=== PATIENT | male | born 2000 | race Caucasian/White ===

== ENCOUNTER 2021-06-21 09:18 | Inpatient (IN) | payer MEDICAID ==
[~2021-06-21] VITALS: Ht 185.4 cm; Wt 78.2 kg
[2021-06-22 08:40] VITALS: BP 129/66
[2021-06-22] MEDS ORDERED: mag hydrox/Alum hydrox/simeth 30ml oral suspension PO PRN (08:40)
[2021-06-22] MEDS ORDERED: acetaminophen 325mg tablet PO PRN ×2 (08:40)
[2021-06-22] MEDS ORDERED: magnesium hydroxide 30ml (MOM) UD suspension PO PRN (08:40)
[2021-06-22] MEDS ORDERED: loperamide 2mg capsule PO PRN (08:40)
--- NOTE | 2021-06-22 08:40 | NUR ---
Admit Note: Pt. was admitted to the unit from [facility] in [place], [place] in a wheelchair accompanied by Tech. A safety check was completed and his belongings were inventoried. Pt. is on a 5150 for GD. 5150 states: You stated, "I feel I hear myself crying...walking my bones to hear my brother sing." You presented as dulled after Zyprexa 20mg 1.5 hours prior, loose associations, disorganization, no POC.
[2021-06-22] MEDS ORDERED: PALI234D IM (16:46)
[2021-06-22] MEDS: LORazepam 1 MG tablet PO PRN (16:52)
--- NOTE | 2021-06-22 17:37 | NUR ---
Nursing Progress Note: Legal hold: 5150 Client on involuntary status for GD Report received from nurse with use of SBAR: Anna Marie Richard RN Why are they here: Pt. is on a 5150 for GD. 5150 states: You stated, "I feel I hear myself crying...walking my bones to hear my brother sing." You presented as dulled after Zyprexa 20mg 1.5 hours prior, loose associations, disorganization, no POC. Assessment What has happened this shift: Pt. was cooperative with mental health assessment, however is easily distracted and a poor historian. He is A&O X1, to name only and when questioned why he is here states, "I was hit by radioactive waves." Pt. also reports a belief that he is an brendon and he is getting his wings, pointing to areas on his upper back, stating "They are growing in." When questioned regarding S/I, pt. currently denies this and scores as a low suicide risk on the [employer] Suicide Risk Assessment, this was endorsed to HECTOR Palmer. He denies any H/I. Pt. does admit to V/RODRIGUEZ of "The radioactive symbol," and A/RODRIGUEZ of "Microphones." He reported a headache, and PRN Tylenol was administered with effectiveness. Pt. presents as restless and hyper sabianist AEB pacing reading out of the Bible throughout much of the shift. At approximately 1645, pt. became increasingly anxious and slightly agitated. He yelled out, "I'm nobody's B....!" This was endorsed to HECTOR Palmer and obtained an order for PRN Ativan, will continue to monitor closely. S/I, H/I: Denies A/VH: Pt. reports V/RODRIGUEZ of "The radioactive symbol," and A/RODRIGUEZ of "Microphones." Sleep: Pt. napped intermittently during the shift ADL's: Pt. requires direction and encouragement Group attendance: N/A Were meds taken: None ordered Any med S/E: None Mental Status Exam Appearance: Hair and clothing are disheveled Eye contact: Good, intense at times Behavior: Cooperative, anxious, and restless Speech: Hyperverbal Mood: Pleasant, however restless Affect: Labile Thought process: Tangental with disorganization Thought Content: A/V/RODRIGUEZ and delusions Cognition: A&O X1 Insight: Poor Judgment: Poor Interventions PRN's used: Tylenol and Ativan Therapeutic interventions: Introduced self and attempted to establish rapport, maintained a safe and supportive environment, ensured contract for safety, provided clear and simple instructions, attempted to orient to reality, monitored behavior and provided redirection as needed, and maintained Q 15 min. safety checks. Restraints/seclusion/emergency medication: N/A Justification of Continued Inpatient Treatment: Pt. requires a safe and supportive environment, medication adjustments, and interruption of current crisis.
--- NOTE | 2021-06-22 17:58 | NUR ---
Pt. had an Invega Sustenna injection 234mg on 06/17/21 per chart records. This hand sign writer attempted to contact [facility] to see when next injection is due, however unable to reach and left message. This was endorsed to HECTOR Palmer who may start pt. on oral Invega.
[2021-06-22] MEDS ORDERED: traZODone 50mg tablet PO PRN (19:05)
[2021-06-22 20:00] VITALS: BP 136/71
[2021-06-22] MEDS: PALIPERIDONE 3 MG TAB.ER.24 PO SCH (20:21)
[2021-06-22 21:42] VITALS: BP 136/71
--- NOTE | 2021-06-23 05:32 | NUR ---
Nursing Progress Note: Legal hold: 5150 Client on involuntary status for GD Report received from nurse with use of SBAR: JOSELITO Stevenson Why are they here: Pt. is on a 5150 for GD. 5150 states: You stated, "I feel I hear myself crying...walking my bones to hear my brother sing." You presented as dulled after Zyprexa 20mg 1.5 hours prior, loose associations, disorganization, no POC. Assessment What has happened this shift: Received pt in hallway reading Bible aloud while pacing slowly. Pt cooperative with pm assessment and pt continues to rattle out delusional thoughts with some sikhism preoccupation. Pt fell asleep before snacks and was easily awoken for snack and hs medication which he took without hesitation. Pt returned to sleep by 2029 and remains asleep without signs of distress. S/I, H/I: Denies A/VH: Pt. reports A/V hallucinations Sleep: Pt. napped intermittently during the shift ADL's: Pt. requires direction and encouragement Group attendance: N/A Were meds taken: None ordered Any med S/E: None Mental Status Exam Appearance: pt appeared clean and attentive to ADLs dressed in street clothes Eye contact: Good, intense at times Behavior: Cooperative, anxious, and restless Speech: Hyperverbal Mood: Pleasant, however restless Affect: Labile Thought process: Tangental with disorganization Thought Content: A/V/RODRIGUEZ and delusions Cognition: A&O X1 Insight: Poor Judgment: Poor Interventions PRN's used: n/a Therapeutic interventions: Introduced self and attempted to establish rapport, maintained a safe and supportive environment, ensured contract for safety, provided clear and simple instructions, attempted to orient to reality, monitored behavior and provided redirection as needed, and maintained Q 15 min. safety checks. Restraints/seclusion/emergency medication: N/A Justification of Continued Inpatient Treatment: Pt. requires a safe and supportive environment, medication adjustments, and interruption of current crisis.
[2021-06-23 07:05] LABS: HEMOGLOBIN A1C 5.6 % (4.5-6.2)
--- NOTE | 2021-06-23 07:29 | NUR ---
Malnutrition consult: Pt admitted w/ A/V/RODRIGUEZ per EMR. Pt unsure of wt loss per MST, no wt hx in EMR though current wt appropriate. No reports of muscle or fat wasting, no edema noted and pt w/ normal muscle strength. Pt has consumed 75-100% of fist 2 meals and has had snacks. At this time pt does not meet minimum criteria for malnutrition. Addendum: 06/23/21 at [address] R[address] Amended: Links added.
[2021-06-23 08:00] VITALS: BP 123/63
[2021-06-23 08:09] LABS: CHOL/HDL RATIO 2.9 (0.00-4.99); CHOLESTEROL 204 MG/DL (0-200); HDL CHOLESTEROL 70 MG/DL (35-60); LDL CHOLESTEROL 122 MG/DL (50-100); TRIGLYCERIDES 37 MG/DL (20-135)
--- NOTE | 2021-06-23 15:09 | NUR ---
Assessment Presenting Issues: Pt admitted from [facility] on 5150 due to GD concerns. 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 Clinician, w/pt present called his mother, left w/nayely's # for mother to contact pt. Plan: Clinician will continue to engage pt & family in assessment & dcp activities as appropriate. Shanelle Galindo LCSW Addendum: 06/23/21 at 1514 by Shanelle Galindo SS Amended: Links added.
--- NOTE | 2021-06-23 17:05 | NUR ---
Nursing Progress Note: Pedro Legal hold: 5150 Client on involuntary status for GD Report received from RN with use of SBAR Why are they here: Pt. is on a 5150 for GD. 5150 states: You stated, "I feel I hear myself crying...walking my bones to hear my brother sing." You presented as dulled after Zyprexa 20mg 1.5 hours prior, loose associations, disorganization, no POC. Assessment What has happened this shift: Patient was sleeping at start of shift. I first seen patient awake and talking with nursing students in the community room and decided to approach him after their conversation was done. I was finally able to approach patient when he returned to his room, where he denied thoughts of SI/HI. He does report hallucinating radioactive symbol signs everywhere he goes. Patient verbalizes being an brendon whose wings are getting cut off. He believes his wings get cut off every time he hears a door close. Patient continues to request for me to read the bible with him, saying it makes him happy. Patient states he will reach out to his sister once he is discharged and have her get him back to [place], where he will work. S/I, H/I: Denies A/VH: Pt. reports auditory hallucinations Sleep: patient napped once during shift for about 2 hours ADL's: Pt. 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 Were meds taken: None ordered Any med S/E: None Mental Status Exam Appearance: pt appeared clean and attentive to ADLs dressed in street clothes Eye contact: Good, intense at times Behavior: Cooperative, anxious, and restless Speech: Hyperverbal Mood: Pleasant, however restless Affect: Labile Thought process: Tangental with disorganization Thought Content: visual hallucinations and delusions Cognition: A&O X Insight: Poor Judgment: Poor Interventions PRN's used: n/a Therapeutic interventions: Introduced self and attempted to establish rapport, maintained a safe and supportive environment, ensured contract for safety, provided clear and simple instructions, attempted to orient to reality, monitored behavior and provided redirection as needed, and maintained Q 15 min. safety checks. Restraints/seclusion/emergency medication: N/A Justification of Continued Inpatient Treatment: Pt. requires a safe and supportive environment, medication adjustments, and interruption of current crisis.
[2021-06-23 20:00] VITALS: BP 135/89
[2021-06-23] MEDS: PALIPERIDONE 3 MG TAB.ER.24 PO SCH (20:16)
--- NOTE | 2021-06-23 23:15 | NUR ---
Nursing Progress Note: Pedro Legal hold: 5150 Client on involuntary status for GD Report received from RN with use of SBAR Why are they here: Pt. is on a 5150 for GD. 5150 states: You stated, "I feel I hear myself crying...walking my bones to hear my brother sing." You presented as dulled after Zyprexa 20mg 1.5 hours prior, loose associations, disorganization, no POC. Assessment What has happened this shift: Patient in the rec room watching TV with peers. Pt presents as restless and paranoid. Pt denies SI/+AH states his voices say first thing first; saddle the horses up. Pt is observed in the hallway responding to internal stimuli (laughing and talking to himself.) Pt several times tried to come into the observation room but was easily re-directed. Pt participated in snacks and took all HS medications. Pt was observed lying on the floor in the rec room and was directed to his room to go to bed. Pt stated to PCT can you make sure my roommate doesnt kill me. S/I, H/I: Denies A/VH: Pt. reports auditory hallucinations Sleep: ADL's: Pt. requires direction and encouragement Group attendance: Were meds taken: yes Any med S/E: None Mental Status Exam Appearance: pt appeared disheveled dressed in street clothes with a heavy coat. Eye contact: Good, intense at times Behavior: Cooperative, anxious, paranoid Speech: Hyperverbal Mood: Pleasant, however restless Affect: Labile Thought process: Tangental with disorganization Thought Content: visual hallucinations and delusions Cognition: A&O X1 Insight: Poor Judgment: Poor Interventions PRN's used: n/a Therapeutic interventions: Introduced self and attempted to establish rapport, maintained a safe and supportive environment, ensured contract for safety, provided clear and simple instructions, attempted to orient to reality, monitored behavior and provided redirection as needed, and maintained Q 15 min. safety checks. Restraints/seclusion/emergency medication: N/A Justification of Continued Inpatient Treatment: Pt. requires a safe and supportive environment, medication adjustments, and interruption of current crisis.
[2021-06-24 08:00] VITALS: BP 113/83
[2021-06-24] MEDS: LORazepam 1 MG tablet PO PRN (08:11)
--- NOTE | 2021-06-24 09:53 | NUR ---
Pt attended group today. We talked about Self Nurturing about how to curate spaces of nurture/self-care for themselves. We then did Vision board visualizing safe/nurture places and words. Pt. was very engaging in the group. He has a lot to say that was appropriate and positive toward the topic we were discussing. He engaged well in the Vision page jumping right into the activity. He was very friendly with the nursing students talking with them throughout the group. At one point he asked them (three nursing students) if he could pray for them and then he did. The students were encouraging of him and they appeared to be having good interactions with him. At the end of the group he brought his page to this Alumni Coordinator and explained some of its meaning. When asked if he would like to share it with the group, he was willing. He shared about his page appropriately, at the end of his explanation he began to share how some content that was veering into delusional. He explained to the group that he is an brendon and started to explain where his wings were and how he works them. His demeanor was pleasantly manic and compliant. His thought content seemed to contain hyper synagogue themes. His thought process was a bit disorganized but he is able to follow along to topic and respond appropriately. Sruthi Barrera LCSW
--- NOTE | 2021-06-24 10:02 | NUR ---
Pt. attended group today. At the beginning of group we talked about Core Beliefs and they each identified one negative. We worked toward finding evidence to contradict this belief. In the second half of the group we did an Art Expressions where they what was inside of their hearts. They were to visualize in colors and shapes and then color their heart in. Then they completed a Sentence Completion about what their heart thinks and feels. Pt. engaged in the group well. He shared his thoughts appropriately with the group and seemed to enjoy his heart expression. His demeanor was calm, compliant and pleasant to work with. His mood was less manic in presentation today from yesterday. His thought content and thought process were WNL. Sruthi Barrera LCSW
--- NOTE | 2021-06-24 17:54 | NUR ---
Nursing Progress Note: Pedro Legal hold: 5150 Client on involuntary status for GD Report received from nurse with use of SBAR: JOSELITO Ho Why are they here: Pt. is on a 5150 for GD. 5150 states: You stated, "I feel I hear myself crying...walking my bones to hear my brother sing." You presented as dulled after Zyprexa 20mg 1.5 hours prior, loose associations, disorganization, no POC. Assessment What has happened this shift: Patient was observed walking around the unit at change of shift. He joined in the group room for breakfast with peers. Patient was receptive to 1:1 assessment. He endorsed to this display card writer that he is doing okay and ready to go home. Patient noted isolating to his room after breakfast, observed lying in bed. He received PRN Ativan at 0811 for c/o anxiety and not feeling very friendly. Patient denies SI/HI, AH or VH. Does not appear to be responding to internal stimuli. 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 He is cooperative, pleasant, reserved, and self-isolative throughout the shift. Patient participated in group therapy today, noted interacting and engaging appropriately with staff and peers. He retreated back to his room shortly after. Patient observed walking around the unit and talking to a peer for a brief period of time later in the shift. He joined in the group room for all meal and snack times today. S/I, H/I: Denies A/VH: Denies Sleep: Pt slept 7.75 hours last night per NOC shift. Napped intermittently on this shift. ADL's: Pt. requires direction and encouragement Group attendance: Yes Were meds taken: None ordered Any med S/E: None observed or reported Mental Status Exam Appearance: Hair and clothing are disheveled, wearing green unit scrubs Eye contact: Good Behavior: Cooperative, anxious, and restless Speech: Clear, WNL Mood: Pleasant, however restless Affect: Labile Thought process: Linear Thought Content: Meeting needs. Ready to go home. Cognition: A&O X1 to person Insight: Poor Judgment: Poor Interventions PRN's used: Ativan Therapeutic interventions: Introduced self and attempted to establish rapport, maintained a safe and supportive environment, ensured contract for safety, provided clear and simple instructions, attempted to orient to reality, monitored behavior and provided redirection as needed, and maintained Q 15 min. safety checks. Restraints/seclusion/emergency medication: N/A Justification of Continued Inpatient Treatment: Pt. requires a safe and supportive environment, medication adjustments, and interruption of current crisis.
[2021-06-24 19:48] VITALS: BP 143/73
[2021-06-24] MEDS: PALIPERIDONE 3 MG TAB.ER.24 PO SCH (20:19)
--- NOTE | 2021-06-25 01:32 | NUR ---
Nursing Progress Note: Pedro Legal hold: 5150 Client on involuntary status for GD Report received from nurse with use of SBAR: JOSELITO Kim Why are they here: Pt. is on a 5150 for GD. 5150 states: You stated, "I feel I hear myself crying...walking my bones to hear my brother sing." You presented as dulled after Zyprexa 20mg 1.5 hours prior, loose associations, disorganization, no POC. Assessment What has happened this shift: Patient was in the rec room questioning whether or not he could take a greyhound bus tonight back to [place] because his hold is up tomorrow. This inspector automatic typewriter let the pt know it was up to the Dr on when he can get discharged. Pt denied MH symptoms and stated he wants to go back to [facility] where he is from. 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 He is cooperative, pleasant, reserved, and self-isolates. Pt up to the community room for snacks and took all HS medications without issue. Pt went to his room where he fell asleep. S/I, H/I: Denies A/VH: Denies Sleep: ADL's: Pt. requires direction and encouragement Group attendance: Yes Were meds taken: None ordered Any med S/E: None observed or reported Mental Status Exam Appearance: Hair and clothing are disheveled, wearing a heavy brown coat Eye contact: Good Behavior: Cooperative, anxious, and restless Speech: Clear, WNL Mood: Pleasant, however restless Affect: Labile Thought process: Linear Thought Content: Meeting needs. Ready to go home. Cognition: A&O X1 to person Insight: Poor Judgment: Poor Interventions PRN's used: Therapeutic interventions: Introduced self and attempted to establish rapport, maintained a safe and supportive environment, ensured contract for safety, provided clear and simple instructions, attempted to orient to reality, monitored behavior and provided redirection as needed, and maintained Q 15 min. safety checks. Restraints/seclusion/emergency medication: N/A Justification of Continued Inpatient Treatment: Pt. requires a safe and supportive environment, medication adjustments, and interruption of current crisis.
[2021-06-25 07:33] VITALS: BP 108/41
[2021-06-25] MEDS: lactose-reduced food (Ensure Enlive) - 237ml bottle PO SCH ×2 (13:26→17:57)
--- NOTE | 2021-06-25 17:01 | NUR ---
Nursing Progress Note: Pedro Legal hold: Voluntary Client on involuntary status for GD Report received from nurse with use of SBAR: [place] RN Why are they here: Pt. is on a 5150 for GD. 5150 states: You stated, "I feel I hear myself crying...walking my bones to hear my brother sing." You presented as dulled after Zyprexa 20mg 1.5 hours prior, loose associations, disorganization, no POC. Assessment What has happened this shift: Patient was observed sleeping in his room upon shift change. He was receptive to 1:1 assessment this morning. Patient participated for breakfast in the group room with peers. He continues to present as pleasant, cooperative, and reserved. Patient was observed isolating to his room the majority of the morning. He denies SI/HI, AH or VH. Does not appear to be responding to internal stimuli. Patient approached this ghost writer endorsing that he is ready to get out of here and wants to walk out the front door. Patient also endorsing that he has completed his mission and is ready to go back to [place]. He was self-isolative and reserved throughout the shift. Patient noted isolating to his room and napping intermittently. He participated in the group room for all meal and snack times today. S/I, H/I: Denies A/VH: Denies. Does not appear to be responding to IS. Sleep: Pt slept 8.5 hours last night per NOC shift. Napped intermittently on this shift. ADL's: Pt. requires direction and encouragement Group attendance: N/A Were meds taken: No AM meds ordered Any med S/E: None observed or reported Mental Status Exam Appearance: Hair and clothing are disheveled, wearing green unit scrubs Eye contact: Good Behavior: Cooperative, restless, reserved Speech: Clear, WNL Mood: Pleasant Affect: Labile Thought process: Linear Thought Content: Meeting needs. Ready to get out of here. Cognition: A&O x1 to person Insight: Poor Judgment: Poor Interventions PRN's used: N/A Therapeutic interventions: Maintained a safe and supportive environment, ensured contract for safety, provided clear and simple instructions, attempted to orient to reality, monitored behavior and provided redirection as needed, and maintained Q 15 min. safety checks. Restraints/seclusion/emergency medication: N/A Justification of Continued Inpatient Treatment: Pt. requires a safe and supportive environment, medication adjustments, and interruption of current crisis.
[2021-06-25 19:00] VITALS: BP 141/68
[2021-06-25] MEDS: PALIPERIDONE 3 MG TAB.ER.24 PO SCH (20:02)
--- NOTE | 2021-06-26 01:18 | NUR ---
Nursing Progress Note: Pedro Legal hold: Voluntary Client on involuntary status for GD Report received from nurse with use of SBAR: Kallie RN Why are they here: Pt. is on a 5150 for GD. 5150 states: You stated, "I feel I hear myself crying...walking my bones to hear my brother sing." You presented as dulled after Zyprexa 20mg 1.5 hours prior, loose associations, disorganization, no POC. Assessment What has happened this shift: Patient was observed in the rec room watching T. Pt states he is doing good and hes hoping that life doesnt mess him up. He is hopeful to go back to [place] where he is from. He denies SI and states that if he hears voices he tells them to go away. He was observed in the community room for snack time with headphones on. HS medications administered without issue. Before bedtime the pt approached this mortgage underwriter in the hallway and states that he saw 2 miracles tonight. He saw my Aaron talking to my God and then I saw a Lion speaking to me. He states he was getting tired and retired to bed. Therapeutic interventions: Maintained a safe and supportive environment, ensured contract for safety, provided clear and simple instructions, attempted to orient to reality, monitored behavior and provided redirection as needed, and maintained Q 15 min. safety checks. Restraints/seclusion/emergency medication: N/A Justification of Continued Inpatient Treatment: Pt. requires a safe and supportive environment, medication adjustments, and interruption of current crisis.
--- NOTE | 2021-06-26 07:26 | NUR ---
Initial: Pt admitted w/ psychosis per EMR. Currently on Regular diet eating 100% of meals and consuming snacks per documentation, meeting nutrient needs. Noted Ensure Enlive TID ordered and pt is consuming 100% of them, however ONS is not indicated and pt is greatly exceeding nutrient needs. TC to RN recommendation to d/c ONS. LBM 06/25 w/ PRN bowel care available. Will continue to monitor. Recs: 1. Continue Regular diet as tolerated; offer snacks 2. Ensure Enlive TID; discontinues as not indicated 3. Bowel care PRN 4. Weekly wts Addendum: 06/26/21 at [address] Ríos RD Amended: Links added.
[2021-06-26 08:00] VITALS: BP 122/48
[2021-06-26] MEDS: lactose-reduced food (Ensure Enlive) - 237ml bottle PO SCH ×3 (08:00→18:04)
[2021-06-26 09:02] VITALS: BP 122/48
--- NOTE | 2021-06-26 09:31 | NUR ---
DCP Presenting Issues: Pt's stable and ready to d/c. Pt expressed desires to rt home to [facility]. Attending physician requesting dcp support to facilitate d/c. Interventions: Clinician met w/pt and engaged him in dcp activities. Per session, pt agreed to allow clinician to coordinate f/u appointment for him with a provider in [place], [place]. Clinician had t/c with [facility] and coordinated post-hospital follow-up care for pt. Reviewed dcp w/pt, pt in agreement. Plan: Clinician will consult w/attending physician re d/c date and purchase Greyhound ticket for pt to rt to [place], [place]. Pt to d/c tomorrow or Wednesday. BAYLEE ReynosoW Addendum: 06/26/21 at 1006 by Shanelle Gailndo SS Amended: Links added.
[2021-06-26] MEDS ORDERED: paliperidone palmitate 156 mg/ml inj.**IM only IM ONE (09:50)
--- NOTE | 2021-06-26 12:11 | NUR ---
DCP Presenting Issues: Pt's d/c-ing tomorrow to rt to [facility], [place], [facility] by [facility] and f/u with outpt provider there. Interventions: Clinician met w/pt and finalized dcp with him, pt reports that he has a [place] state ID but no $$. Pt will d/c from [facility] @ 4:00 AM tomorrow morning take cab to [employer] and board [employer]. Care team will pack food, Ensure & water. Pt agreed to take a PEÑA prior to d/c. Plan: Pt to d/c tomorrow to rt to [place], [place] via [employer] and call his family to meet him at the [facility] terminal. Shanelle Galindo LCSW Addendum: 06/26/21 at 1242 by Shanelle Galindo SS Amended: Links added.
--- NOTE | 2021-06-26 18:14 | NUR ---
Nursing Progress Note: Legal hold: Voluntary Client on involuntary status for GD Report received from nurse with use of SBAR: JOSELITO Ho Why are they here: Pt. is on a 5150 for GD. 5150 states: You stated, "I feel I hear myself crying...walking my bones to hear my brother sing." You presented as dulled after Zyprexa 20mg 1.5 hours prior, loose associations, disorganization, no POC. Assessment What has happened this shift: Received patient while he was sleeping in his bed. Patient difficult to wake up for breakfast, but did eventually go to the [facility] to eat. Patient returned to his room and started to go back to sleep. Met with patient to complete 1:1 Patient Assessment and Interview. Patient reports he is feeling good, and that he is going to [place], [place] in a few days. Patient reports he has been working with a [employer] to get back home. Patient is excited to leave soon, and this is conveyed in his voice. Patient slept during the morning after breakfast, then awoke for lunch. Attempted to wake patient up for the Group Meeting, but he was difficult to arouse. Patient again woke up approximately 20 minutes before lunch, then ate his lunch. Patient was awake and alert the rest of the day. Dr. Oh met with the patient and ordered Invega 156 mg IM. Order entered into [employer] and went to the Pharmacy to pick it up. Dr. Oh met with the patient at approximately who signed Invega treatment paperwork given to him by Dr. Sanchez at patients bedside, who explained the pros and cons with the medication (patient has had this medication before), and the Invega was administered in the left deltoid at 1450. Patient stayed up the rest of the day, preparing his belongings (clothing) for departure before 0400 in the morning. Bus tickets put in patients chart by NIKKI Timmons. S/I, H/I: Denies A/VH: Denies Sleep: 6.0 hours of sleep. Patient took a long nap this morning after breakfast. ADL's: Assist patient with shower with encouragement. Group attendance: Patient did not attend the Group Meeting despite encouragement to go. Were meds taken: No medication ordered. Any med S/E: None observed or reported Mental Status Exam Appearance: Hair and clothing are disheveled, wearing black pants and black shirt Eye contact: Good Behavior: Cooperative, Restless at times. Speech: Clear, WNL Mood: Pleasant Affect: Labile Thought process: Linear Thought Content: Meeting needs. Discharge early am for return to [place], [place] with family Cognition: A&O x1 to person Insight: Poor Judgment: Poor Interventions PRN's used: N/A Therapeutic interventions: Maintained a safe and supportive environment, ensured contract for safety, provided clear and simple instructions, attempted to orient to reality, monitored behavior and provided redirection as needed, and maintained Q 15 min. safety checks. Restraints/seclusion/emergency medication: N/A Justification of Continued Inpatient Treatment: Pt. requires a safe and supportive environment, medication adjustments, and interruption of current crisis.
[2021-06-26] MEDS ORDERED: PALI156D IM (18:33)
[2021-06-26 19:22] VITALS: BP 148/78
--- NOTE | 2021-06-27 03:15 | NUR ---
ELECTROENCEPHALOGRAPH TECHNICIAN NOTE: Client awake at 03:00. Client given bus ticket, personal belongings, discharge packet, and food for two days. Client was supplied with face masks. Client was quiet, calm, and cooperative. Mood was stable. Client departed unit at 03:20 accompanied by Jeb Braden. [employer] conveyed client to Bus station.
== END 2021-06-27 03:25 | disposition home or self-care (01) | DRG 753 ==
LOC: ADULT MH 06-22 08:35
PROVIDERS: ADMIT Psychiatry & Neurology Psychiatry; ATTEND Psychiatry & Neurology Psychiatry
DX: F31.2 Bipolar disorder, current episode manic severe with psychotic features (principal); F12.10 Cannabis abuse, uncomplicated; J45.909 Unspecified asthma, uncomplicated; Z82.49 Family history of ischemic heart disease and other diseases of the circulatory system; Z59.00 Homelessness unspecified; Z56.0 Unemployment, unspecified
CPT/HCPCS: 36415; 80061; 83036; 87081